=== PATIENT | female | born 1960 ===

== ENCOUNTER 2018-11-29 07:49 | Emergency (ER) | payer MEDICAID, OTHER ==
[~2018-11-29] VITALS: Ht 162.6 cm; Wt 86.0 kg
--- NOTE | 2018-11-29 08:09 | NUR ---
Patient from triage via wheelchair, appears agitated, son at bedside [place]. Patient reports she stopped taking pain medication 2 weeks ago and has not been able to calm down. She has been drinking "heavily" for 2 weeks. This morning when she woke up at 0600 son reports pt told her she couldnt breathe and grabbed at her chest. Son continues to calm patient down. Provider at bedside.
[2018-11-29] MEDS ORDERED: LORazepam 2 MG/ML, 1ML IVPush ONE (08:30)
[2018-11-29] MEDS ORDERED: SODIUM CHLORIDE FLUSH 10ML SYR IVF ONE (08:30)
[2018-11-29] MEDS ORDERED: ONDANSETRON 2MG/ML, 2ML IVPush ONE (08:30)
[2018-11-29] MEDS ORDERED: ASPIRIN 81 MG TABLET CHEW PO ONE (08:30)
[2018-11-29 09:06] LABS: BASOPHILS # (AUTO) 0.02 x10^3/uL (0-0.1); BASOPHILS % (AUTO) 0 % (0-1); EOSINOPHILS # (AUTO) 0.02 x10^3/uL (0-0.4); EOSINOPHILS % (AUTO) 1 % (1-7); LYMPHOCYTES # (AUTO) 1.28 x10^3/uL (1-3.4); LYMPHOCYTES % (AUTO) 33 % (22-44); MD NO; MEAN CORPUSCULAR HGB CONC 33.3 g/dL (32.4-35.8); MEAN CORPUSCULAR VOLUME 83.9 fL (80-100); MEAN PLATELET VOLUME 7.9 fL (7.4-10.4); MONOCYTES # (AUTO) 0.24 x10^3/uL (0.2-0.8); MONOCYTES % (AUTO) 6 % (2-9); NEUTROPHILS # (AUTO) 2.32 x10^3/uL (1.8-6.8); NEUTROPHILS % (AUTO) 60 % (42-75); PLATELET COUNT 211 x10^3/uL (130-400); RED BLOOD COUNT 5.16 x10^6/uL (3.82-5.3); RED CELL DISTRIBUTION WIDTH 15.6 % (9.6-15.2)
[2018-11-29] MEDS ORDERED: ONDANSETRON 2MG/ML, 2ML ONE (09:10)
[2018-11-29] MEDS ORDERED: LORazepam 2 MG/ML, 1ML ONE (09:10)
[2018-11-29 09:16] LABS: ALBUMIN 3.8 g/dL (3.4-5.0); ANION GAP 14 mmol/L (5-15); CALCIUM 8.1 mg/dL (8.5-10.1); CHLORIDE 105 mmol/L (98-107)
[2018-11-29 09:22] LABS: ALANINE AMINOTRANSFERASE 38 U/L (12-78); ALKALINE PHOSPHATASE 128 U/L (45-117); BILIRUBIN,TOTAL 1.1 mg/dL (0.2-1.0); CREATININE 0.78 mg/dL (0.55-1.02); TOTAL PROTEIN 8.1 g/dL (6.4-8.2); TROPONIN I < 0.015 ng/mL (0.000-0.045)
--- NOTE | 2018-11-29 09:23 | NUR ---
Patient resting in bed, reports feeling like she is going through withdrawls. Son at bedside, patient medicated per order.
[2018-11-29] MEDS ORDERED: THIAMINE 100MG TABLET PO ONE (10:30)
[2018-11-29] MEDS ORDERED: THIAMINE 100MG TABLET ONE (10:40)
[2018-11-29] MEDS ORDERED: POTASSIUM CHLORIDE 20 MEQ TAB.ER.PRT ONE (10:40)
--- NOTE | 2018-11-29 10:42 | NUR ---
PATIENT RESTING IN BED, WAS AMBULATORY TO RESTROOM WITH STANDBY ASSIST. PATIENT REPORTS FEELING A LITTLE BETTER
[2018-11-29] MEDS ORDERED: POTASSIUM CHLORIDE 20 MEQ TAB.ER.PRT PO ONE (11:00)
[2018-11-29] MEDS ORDERED: SODIUM CHLORIDE 0.9% 1,000ML IVBOLUS ONE (11:00)
[2018-11-29] MEDS ORDERED: CHLORDIAZEPOXIDE 25 MG CAPSULE ONE (11:26)
[2018-11-29] MEDS ORDERED: CHLORDIAZEPOXIDE 25 MG CAPSULE PO PRN (11:30)
--- NOTE | 2018-11-29 11:32 | NUR ---
Patient resting in bed, reports feeling "withdrawals" medicated per order. of patient at bedside.
[2018-11-29 12:54] VITALS: BP 138/87
--- NOTE | 2018-11-29 13:01 | NUR ---
Patient is being discharged home, waiitng for to arrive to discuss discharge instructions. Spoke with who is en route to the ED. Patient resting on the gurney NAD noted.
--- NOTE | 2018-11-29 13:22 | NUR ---
Patient discharged home. of patient given discharge instructions along with patient. All questions and concerns addressed. Plan is to have patient go from the ED to [address] [place] [address]. agreed to take patient. IV dc'd cath intact. Patient ambulatory with slow shifty gait but steady. All belongings are with patient
== END 2018-11-29 13:24 | disposition home or self-care (01) ==
LOC: ED 09:01
DX: R07.2 Precordial pain (principal); E11.65 Type 2 diabetes mellitus with hyperglycemia; F11.10 Opioid abuse, uncomplicated; Z72.9 Problem related to lifestyle, unspecified; Z88.5 Allergy status to narcotic agent
CPT/HCPCS: 36415; 71045; 80053; 83690; 83735; 84484; 85025; 93005; 96361; 96374; 96375; 99284; J2060; J2405; J7030